=== PATIENT | male | born 1990 | race Caucasian/White ===

== ENCOUNTER 2019-11-22 10:16 | Inpatient (IN) | payer OTHER ==
[~2019-11-22] VITALS: Ht 167.6 cm; Wt 77.1 kg
[2019-11-22 10:24] VITALS: BP 116/66
[2019-11-22 11:14] LABS: ABSOLUTE BASOPHILS 0.1 thou/uL (0.0-0.2); ABSOLUTE LYMPHOCYTES 1.1 thou/uL (0.8-5.3); ABSOLUTE MONOCYTES 0.4 thou/uL (0.0-1.2); EOSINOPHILS 0.3 %; HEMATOCRIT 36.6 % (42.0-52.0); HEMOGLOBIN 12.2 gm/dL (14.0-18.0); LYMPHOCYTES 12.7 %; MCHC 33.3 g/dL (28.0-37.0); MCV 77.9 fL (80.0-100.0); MONOCYTES 4.5 %; MPV 7.3 fl. (7.2-11.1); NUCLEATED RBCS 0 /100WBC; PLATELET COUNT* 469 thou/uL (150-400); POLYS 81.5 %; RDW-CV 14.7 % (10.5-14.5); WBC 8.6 thou/uL (4.0-11.0)
[2019-11-22 11:22] LABS: CALCIUM 9.3 mg/dL (8.5-10.1); CREATININE 0.9 mg/dL (0.6-1.3); POTASSIUM 4.2 mmol/L (3.5-5.1)
[2019-11-22 11:27] LABS: ALBUMIN 3.2 g/dL (3.4-5.0); TOTAL BILIRUBIN 1.1 mg/dL (<0.1-1.0); TOTAL PROTEIN 8.6 g/dL (6.4-8.2)
[2019-11-22] MEDS ORDERED: KEFLEX500 M1 PO ×7 (13:21→13:45)
[2019-11-22] MEDS ORDERED: BACTRIM DS TAB1 EAC1 PO ×7 (13:21→13:45)
[2019-11-22 13:54] VITALS: BP 116/66
== END 2019-11-22 13:33 | disposition left against medical advice (07) | DRG 603 ==
LOC: M.ERS 10:16 → M.TBA-ER 11:02
PROVIDERS: Physician Assistant; ADMIT Internal Medicine
DX: L03.114 Cellulitis of left upper limb (principal); F17.210 Nicotine dependence, cigarettes, uncomplicated; F19.10 Other psychoactive substance abuse, uncomplicated; D64.9 Anemia, unspecified; Z53.29 Procedure and treatment not carried out because of patient's decision for other reasons